=== PATIENT | male | born 1985 | race Caucasian/White ===

== ENCOUNTER 2024-06-20 17:52 | Emergency (ER) | payer SELFPAY ==
[~2024-06-20] VITALS: Ht 180.3 cm; Wt 77.0 kg
[2024-06-20 17:58] VITALS: TEMP 37; O2SAT 99
[2024-06-20] MEDS: KETOROLAC 30MG/ML VIAL IM ONE (19:47)
[2024-06-20] MEDS: TETANUS, DIPHTHERIA, PERTUSSIS VAC/PF 0.5ML (>10YR OLD) IM ONE (19:48)
[2024-06-20] MEDS ORDERED: IBUP-2029 MT (20:54)
[2024-06-20 21:04] VITALS: BP 115/77; PULSE 65; RESP 15; O2SAT 99
== END 2024-06-20 21:06 | disposition home or self-care (01) ==
LOC: ER 17:52
DX: S20.211A Contusion of right front wall of thorax, initial encounter (principal); V89.2XXA Person injured in unspecified motor-vehicle accident, traffic, initial encounter; Y93.89 Activity, other specified; Y92.89 Other specified places as the place of occurrence of the external cause; Y99.8 Other external cause status
CPT/HCPCS: 99284; 73502; 71101; 90715; 90471; 96372; J1885